=== PATIENT | female | born 2000 | race Caucasian/White ===

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

== ENCOUNTER 2020-11-25 21:41 | Emergency (ER) | payer OTHER ==
[2020-11-25 22:20] LABS: IMMATURE GRANULOCYTES 0.2 % (0.0-5.0); MEAN CELL VOLUME 82.5 fL CALC (80.0-100.0); MEAN CORPUSCULAR HGB 25.9 pG CALC (26.0-32.0); MEAN CORPUSCULAR HGB CONC 31.4 g/dL CAL (32.0-36.0); NEUT# 9.13 thou/uL (2.00-7.15); RED BLOOD COUNT 5.09 mill/uL (4.20-5.60); RED CELL DISTRI WIDTH 15.1 % (11.5-15.5)
[2020-11-25 22:22] LABS: URINE BILIRUBIN - DIPSTICK NEGATIVE (NEGATIVE); URINE BLOOD DIPSTICK MODERATE (NEGATIVE); URINE COLOR YELLOW; URINE GLUCOSE - DIPSTICK NEGATIVE (NEGATIVE); URINE KETONE 15 mg/dL (NEGATIVE); URINE LEUK ESTERASE NEGATIVE (NEGATIVE); URINE PH 5.5 (4.5-8.0); URINE PROTEIN - DIPSTICK NEGATIVE (NEG-TRACE); URINE SPECIFIC GRAVITY >=1.030; URINE UROBILINOGEN - DIPSTICK 0.2 E.U./dL (0.2)
[2020-11-25 22:25] LABS: URINE NITRITE - DIPSTICK NEGATIVE (Negative)
[2020-11-25 22:26] LABS: HEMOGLOBIN 13.2 g/dl (12.0-16.0)
[2020-11-25 22:31] LABS: URINE BACTERIA FEW hpf; URINE MUCUS FEW hpf (NONE-FEW); URINE SQUAMOUS EPITHELIAL CELL FEW EPI/hpf (0-FEW); URINE WBC 0-2 WBC/hpf (0-5)
[2020-11-25 22:38] LABS: ALBUMIN 4.2 g/dL (3.2-5.0); ALKALINE PHOSPHATASE 76 u/l (38-126); AMYLASE 33 u/l (30-110); ANION GAP 15 (6-22 (CALC)); BUN 19 mg/dL (7-17); BUN/CREATININE RATIO 28 (12-20 (CALC)); CARBON DIOXIDE 23 mmol/l (22-30); CHLORIDE 105 mmol/l (95-108); CREATININE 0.7 mg/dL (0.5-1.0); GFR > 60 ML/MIN (>=60 (CALC)); GFR FOR AFR.AMER. > 60 ML/MIN (>=60 (CALC)); LIPASE 48 u/l (23-300); POTASSIUM 4.2 mmol/l (3.5-5.1); SGOT/AST 20 u/l (14-36); SODIUM 139 mmol/l (137-146); TOTAL PROTEIN 7.2 g/dL (6.3-8.2)
[2020-11-25 22:39] LABS: BILIRUBIN, TOTAL 0.5 mg/dL (0.0-1.4)
[2020-11-26] MEDS ORDERED: ZOFRAN4 MG/TAB PO (00:10)
[2020-11-26 00:19] VITALS: BP 104/72
== END 2020-11-26 00:26 | disposition home or self-care (01) ==
LOC: ED 21:41
PROVIDERS: Family Medicine
DX: K52.9 Noninfective gastroenteritis and colitis, unspecified (principal); R10.12 Left upper quadrant pain; R10.13 Epigastric pain; Z20.822 Contact with and (suspected) exposure to COVID-19

== ENCOUNTER 2022-07-08 15:53 | Emergency (ER) | payer OTHER ==
[~2022-07-08] VITALS: Ht 160 cm; Wt 67.0 kg
[2022-07-08] VITALS (14 sets, daily range): BP systolic 87–132; BP diastolic 35–83
[~2022-07-08 15:53] MED LIST changes: +ZOFRAN4 MG/TAB PO
[2022-07-08 16:54] LABS: BASO% 0.4 % (0-3); EOS% 9.8 % (0-8); HEMATOCRIT 36.4 % (37.0-47.0); HEMOGLOBIN 11.3 g/dl (12.0-16.0); IMMATURE GRANULOCYTES 0.1 % (0.0-5.0); LYMPH% 27.4 % (15-41); MEAN CELL VOLUME 84.5 fL CALC (80.0-100.0); MEAN CORPUSCULAR HGB 26.2 pG CALC (26.0-32.0); MONO% 7.7 % (2-13); NEUT# 3.94 thou/uL (2.00-7.15); NEUT% 54.6 % (42-76); RED BLOOD COUNT 4.31 mill/uL (4.20-5.60); RED CELL DISTRI WIDTH 14.9 % (11.5-15.5)
[2022-07-08 16:55] LABS: URINE BILIRUBIN - DIPSTICK NEGATIVE (NEGATIVE); URINE BLOOD DIPSTICK MODERATE (NEGATIVE); URINE COLOR YELLOW; URINE GLUCOSE - DIPSTICK NEGATIVE (NEGATIVE); URINE KETONE NEGATIVE (NEGATIVE); URINE LEUK ESTERASE TRACE (NEGATIVE); URINE PROTEIN - DIPSTICK 100 mg/dL (NEG-TRACE); URINE SPECIFIC GRAVITY >=1.030; URINE UROBILINOGEN - DIPSTICK 0.2 E.U./dL (0.2)
[2022-07-08 16:59] LABS: URINE NITRITE - DIPSTICK NEGATIVE (Negative)
[2022-07-08 17:00] LABS: HCG SERUM/URINE (NEG/POS) NEGATIVE (NEGATIVE)
[2022-07-08 17:04] LABS: ALBUMIN 4.3 g/dL (3.2-5.0); ALKALINE PHOSPHATASE 56 u/l (38-126); ANION GAP 12 (6-22 (CALC)); BUN 12 mg/dL (7-17); BUN/CREATININE RATIO 16 (12-20 (CALC)); CARBON DIOXIDE 26 mmol/l (22-30); CHLORIDE 106 mmol/l (95-108); CREATININE 0.8 mg/dL (0.5-1.0); GFR FOR AFR.AMER. > 60 ML/MIN (>=60 (CALC)); GFR OTHER RACES > 60 ML/MIN (>=60 (CALC)); POTASSIUM 4.2 mmol/l (3.5-5.1); SGOT/AST 19 u/l (14-36); SODIUM 140 mmol/l (137-146); TOTAL PROTEIN 6.8 g/dL (6.3-8.2)
[2022-07-08 17:06] LABS: URINE SQUAMOUS EPITHELIAL CELL FEW EPI/hpf (0-FEW)
[2022-07-08 17:09] LABS: BILIRUBIN, TOTAL 0.2 mg/dL (0.02-1.3)
[2022-07-08] MEDS ORDERED: KEFLEX500 MG PO (19:12)
[2022-07-08] MEDS ORDERED: ZOFRAN4 MG/TAB PO (19:14)
== END 2022-07-08 19:27 | disposition home or self-care (01) ==
LOC: ED 15:53
PROVIDERS: Nurse Practitioner
DX: R55 Syncope and collapse (principal); N39.0 Urinary tract infection, site not specified; B96.4 Proteus (mirabilis) (morganii) as the cause of diseases classified elsewhere; Z20.822 Contact with and (suspected) exposure to COVID-19

== ENCOUNTER 2022-12-25 17:54 | Emergency (ER) | payer SELFPAY ==
[~2022-12-25] VITALS: Ht 160 cm; Wt 70.4 kg
[~2022-12-25 17:54] MED LIST changes: +KEFLEX500 MG PO
[2022-12-25 18:51] VITALS: BP 125/79
[2022-12-25 19:15] VITALS: BP 103/58
[2022-12-25 19:18] LABS: BASO% 0.3 % (0-3); EOS% 9.2 % (0-8); HEMATOCRIT 35.9 % (37.0-47.0); HEMOGLOBIN 11.4 g/dl (12.0-16.0); IMMATURE GRANULOCYTES 0.1 % (0.0-5.0); LYMPH% 27.4 % (15-41); MEAN CELL VOLUME 89.3 fL CALC (80.0-100.0); MEAN CORPUSCULAR HGB 28.4 pG CALC (26.0-32.0); MEAN CORPUSCULAR HGB CONC 31.8 g/dL CAL (32.0-36.0); MONO% 8.9 % (2-13); NEUT# 4.96 thou/uL (2.00-7.15); NEUT% 54.1 % (42-76); RED BLOOD COUNT 4.02 mill/uL (4.20-5.60); RED CELL DISTRI WIDTH 13.9 % (11.5-15.5)
[2022-12-25 19:32] LABS: ALBUMIN 3.8 g/dL (3.2-5.0); ALKALINE PHOSPHATASE 48 u/l (38-126); ANION GAP 11 (6-22 (CALC)); BILIRUBIN, TOTAL 0.2 mg/dL (0.02-1.3); BUN 12 mg/dL (7-17); BUN/CREATININE RATIO 15 (12-20 (CALC)); CARBON DIOXIDE 26 mmol/l (22-30); CHLORIDE 106 mmol/l (95-108); CREATININE 0.8 mg/dL (0.5-1.0); GFR FOR AFR.AMER. > 60 ML/MIN (>=60 (CALC)); GFR OTHER RACES > 60 ML/MIN (>=60 (CALC)); LIPASE 82 u/l (23-300); POTASSIUM 3.5 mmol/l (3.5-5.1); SGOT/AST 26 u/l (14-36); SODIUM 139 mmol/l (137-146); TOTAL PROTEIN 6.7 g/dL (6.3-8.2)
[2022-12-25 19:42] LABS: AMYLASE < 30 u/l (30-110)
[2022-12-25 19:54] LABS: URINE BILIRUBIN - DIPSTICK Negative (NEGATIVE); URINE BLOOD DIPSTICK Large (NEGATIVE); URINE GLUCOSE - DIPSTICK Negative (NEGATIVE); URINE KETONE Negative (NEGATIVE); URINE PH 5.5 (4.5-8.0); URINE PROTEIN - DIPSTICK 100 mg/dL (NEG-TRACE); URINE UROBILINOGEN - DIPSTICK 0.2 E.U./dL (0.2)
[2022-12-25 19:55] LABS: URINE COLOR Yellow; URINE LEUK ESTERASE Moderate (NEGATIVE); URINE NITRITE - DIPSTICK Positive (Negative)
[2022-12-25 20:09] LABS: URINE BACTERIA FEW hpf; URINE SQUAMOUS EPITHELIAL CELL FEW EPI/hpf (0-FEW); URINE WBC >100 WBC/hpf (0-5)
[2022-12-25] MEDS ORDERED: CEPHALEXIN500 MG PO (20:20)
[2022-12-25 20:54] VITALS: BP 103/58
== END 2022-12-25 21:08 | disposition home or self-care (01) | DRG 690 ==
LOC: ED 17:54
PROVIDERS: Emergency Medicine
DX: N39.0 Urinary tract infection, site not specified (principal); B96.20 Unspecified Escherichia coli [E. coli] as the cause of diseases classified elsewhere; R10.32 Left lower quadrant pain
CPT/HCPCS: Q9967

== ENCOUNTER 2023-12-17 05:46 | Emergency (ER) | payer SELFPAY ==
[~2023-12-17] VITALS: Ht 160 cm; Wt 68.0 kg
[2023-12-17] VITALS (11 sets, daily range): BP systolic 81–125; BP diastolic 52–74
[~2023-12-17 05:46] MED LIST changes: +CEPHALEXIN500 MG PO
[2023-12-17] MEDS ORDERED: SODIUM CHLORIDE 0.9% 1,000 ML IV ONE (06:20)
[2023-12-17] MEDS ORDERED: MORPHINE SULFATE 4 MG/ML VIAL IV ONE (06:20)
[2023-12-17] MEDS ORDERED: ONDANSETRON HCl 4 MG/2 ML SDV IV ONE (06:20)
[2023-12-17 06:26] LABS: BASO% 0.5 % (0-3); EOS% 5.7 % (0-8); HEMATOCRIT 37.4 % (37.0-47.0); IMMATURE GRANULOCYTES 0.2 % (0.0-5.0); LYMPH% 29.7 % (15-41); MEAN CELL VOLUME 91.7 fL CALC (80.0-100.0); MEAN CORPUSCULAR HGB 29.4 pG CALC (26.0-32.0); MEAN CORPUSCULAR HGB CONC 32.1 g/dL CAL (32.0-36.0); MONO% 8.3 % (2-13); NEUT# 3.69 thou/uL (2.00-7.15); NEUT% 55.6 % (42-76); RED BLOOD COUNT 4.08 mill/uL (4.20-5.60); RED CELL DISTRI WIDTH 12.1 % (11.5-15.5)
[2023-12-17 06:26] LABS: URINE BILIRUBIN - DIPSTICK Negative (NEGATIVE); URINE BLOOD DIPSTICK Large (NEGATIVE); URINE GLUCOSE - DIPSTICK Negative (NEGATIVE); URINE KETONE Negative (NEGATIVE); URINE LEUK ESTERASE Trace (NEGATIVE); URINE NITRITE - DIPSTICK Negative (Negative); URINE PROTEIN - DIPSTICK Negative (NEG-TRACE); URINE SPECIFIC GRAVITY 1.025; URINE UROBILINOGEN - DIPSTICK 0.2 E.U./dL (0.2)
[2023-12-17 06:27] LABS: URINE COLOR Yellow
[2023-12-17 06:35] LABS: URINE WBC 0-2 WBC/hpf (0-5)
[2023-12-17 06:36] LABS: URINE SQUAMOUS EPITHELIAL CELL FEW EPI/hpf (0-FEW)
[2023-12-17 06:46] LABS: ALBUMIN 3.9 g/dL (3.2-5.0); CREATININE 0.8 mg/dL (0.5-1.0); POTASSIUM 3.8 mmol/l (3.5-5.1); TOTAL PROTEIN 6.3 g/dL (6.3-8.2)
[2023-12-17 06:47] LABS: BILIRUBIN, TOTAL 0.5 mg/dL (0.02-1.3)
[2023-12-17] MEDS ORDERED: NAPROXEN500 MG PO (11:07)
[2023-12-17] MEDS ORDERED: CEPHALEXIN500 M1 PO (11:07)
== END 2023-12-17 11:24 | disposition home or self-care (01) | DRG 690 ==
LOC: ED 05:46
PROVIDERS: Family Medicine
DX: N39.0 Urinary tract infection, site not specified (principal)
CPT/HCPCS: Q9967

== ENCOUNTER 2024-03-11 19:26 | Emergency (ER) | payer SELFPAY ==
[~2024-03-11] VITALS: Ht 160 cm; Wt 61.2 kg
[~2024-03-11 19:26] MED LIST changes: +CEPHALEXIN500 M1 PO; +NAPROXEN500 MG PO
[2024-03-11 19:33] VITALS: BP 128/87
[2024-03-11] MEDS ORDERED: IBUPROFEN 600 MG/TAB PO ONE (19:45)
[2024-03-11] MEDS ORDERED: traMADol HCL 50 MG/TAB PO ONE (19:45)
[2024-03-11] MEDS ORDERED: TRAMADOL HYDROC50 M1 PO (22:07)
[2024-03-11] MEDS ORDERED: IBUPROFEN600 MG PO (22:07)
[2024-03-11 22:12] VITALS: BP 128/87
== END 2024-03-11 22:21 | disposition home or self-care (01) | DRG 605 ==
LOC: ED 19:26
DX: S60.211A Contusion of right wrist, initial encounter (principal); X58.XXXA Exposure to other specified factors, initial encounter

== ENCOUNTER 2024-04-23 15:10 | Emergency (ER) | payer SELFPAY ==
[2024-04-23] VITALS (10 sets, daily range): BP systolic 94–120; BP diastolic 58–94
[~2024-04-23] VITALS: Ht 160 cm; Wt 72.5 kg
[~2024-04-23 15:10] MED LIST changes: +IBUPROFEN600 MG PO; +TRAMADOL HYDROC50 M1 PO
[2024-04-23] MEDS ORDERED: ONDANSETRON HCl 4 MG/2 ML SDV IV ONE (17:45)
[2024-04-23] MEDS ORDERED: SODIUM CHLORIDE 0.9% 1,000 ML IV ONE ×2 (17:45→19:10)
[2024-04-23 17:51] LABS: BASO% 0.3 % (0-3); EOS% 7.1 % (0-8); HEMATOCRIT 34.4 % (37.0-47.0); HEMOGLOBIN 11.6 g/dl (12.0-16.0); IMMATURE GRANULOCYTES 0.2 % (0.0-5.0); LYMPH% 20.7 % (15-41); MEAN CELL VOLUME 90.8 fL CALC (80.0-100.0); MEAN CORPUSCULAR HGB 30.6 pG CALC (26.0-32.0); MEAN CORPUSCULAR HGB CONC 33.7 g/dL CAL (32.0-36.0); MONO% 6.3 % (2-13); NEUT# 7.72 thou/uL (2.00-7.15); NEUT% 65.4 % (42-76); RED BLOOD COUNT 3.79 mill/uL (4.20-5.60); RED CELL DISTRI WIDTH 11.7 % (11.5-15.5)
[2024-04-23 17:51] LABS: URINE BILIRUBIN - DIPSTICK Negative (NEGATIVE); URINE BLOOD DIPSTICK Moderate (NEGATIVE); URINE GLUCOSE - DIPSTICK Negative (NEGATIVE); URINE KETONE Negative (NEGATIVE); URINE NITRITE - DIPSTICK Negative (Negative); URINE PH 6.5 (4.5-8.0); URINE PROTEIN - DIPSTICK Negative (NEG-TRACE); URINE SPECIFIC GRAVITY 1.025; URINE UROBILINOGEN - DIPSTICK 0.2 E.U./dL (0.2)
[2024-04-23 17:52] LABS: URINE COLOR Yellow; URINE LEUK ESTERASE Small (NEGATIVE)
[2024-04-23 18:00] LABS: URINE BACTERIA FEW hpf; URINE SQUAMOUS EPITHELIAL CELL FEW EPI/hpf (0-FEW)
[2024-04-23 18:04] LABS: BILIRUBIN, TOTAL 0.4 mg/dL (0.02-1.3); CREATININE 0.6 mg/dL (0.5-1.0); TOTAL PROTEIN 6.4 g/dL (6.3-8.2)
[2024-04-23] MEDS ORDERED: MORPHINE SULFATE 4 MG/ML VIAL IV ONE (18:15)
[2024-04-23] MEDS ORDERED: MACROBID100 M1 PO (20:30)
== END 2024-04-23 20:47 | disposition home or self-care (01) | DRG 832 ==
LOC: ED 15:10
PROVIDERS: Emergency Medicine
DX: O99.350 Diseases of the nervous system complicating pregnancy, unspecified trimester (principal); G43.909 Migraine, unspecified, not intractable, without status migrainosus; O23.40 Unspecified infection of urinary tract in pregnancy, unspecified trimester; N39.0 Urinary tract infection, site not specified; Z3A.00 Weeks of gestation of pregnancy not specified
CPT/HCPCS: J0696; J1100; J2405

== ENCOUNTER 2024-05-26 16:42 | Emergency (ER) | payer SELFPAY ==
[2024-05-26] VITALS (22 sets, daily range): BP systolic 85–132; BP diastolic 46–83
[~2024-05-26] VITALS: Ht 160 cm; Wt 74.8 kg
[~2024-05-26 16:42] MED LIST changes: +MACROBID100 M1 PO
[2024-05-26 17:24] LABS: URINE BILIRUBIN - DIPSTICK Negative (NEGATIVE); URINE BLOOD DIPSTICK Moderate (NEGATIVE); URINE COLOR Yellow; URINE GLUCOSE - DIPSTICK Negative (NEGATIVE); URINE KETONE Negative (NEGATIVE); URINE LEUK ESTERASE Moderate (NEGATIVE); URINE NITRITE - DIPSTICK Negative (Negative); URINE PROTEIN - DIPSTICK Negative (NEG-TRACE); URINE UROBILINOGEN - DIPSTICK 0.2 E.U./dL (0.2)
[2024-05-26 17:24] LABS: BASO% 0.4 % (0-3); EOS% 5.8 % (0-8); HEMATOCRIT 33.2 % (37.0-47.0); IMMATURE GRANULOCYTES 0.1 % (0.0-5.0); LYMPH% 27.7 % (15-41); MEAN CELL VOLUME 91.5 fL CALC (80.0-100.0); MEAN CORPUSCULAR HGB 30.3 pG CALC (26.0-32.0); MEAN CORPUSCULAR HGB CONC 33.1 g/dL CAL (32.0-36.0); MONO% 6.4 % (2-13); NEUT# 4.95 thou/uL (2.00-7.15); NEUT% 59.6 % (42-76); RED BLOOD COUNT 3.63 mill/uL (4.20-5.60); RED CELL DISTRI WIDTH 12.3 % (11.5-15.5)
[2024-05-26 17:30] LABS: URINE BACTERIA MODERATE hpf; URINE SQUAMOUS EPITHELIAL CELL MANY EPI/hpf (0-FEW); URINE WBC 50-100 WBC/hpf (0-5)
[2024-05-26 17:54] LABS: ALBUMIN 3.7 g/dL (3.2-5.0); BILIRUBIN, TOTAL 0.3 mg/dL (0.02-1.3); CREATININE 0.5 mg/dL (0.5-1.0); POTASSIUM 3.9 mmol/l (3.5-5.1); TOTAL PROTEIN 6.4 g/dL (6.3-8.2)
[2024-05-26] MEDS ORDERED: CEPHALEXIN MONOHYDRATE 500 MG/CAP PO ONE (20:00)
[2024-05-27 02:49] VITALS: BP 94/51
== END 2024-05-27 02:35 | disposition short-term general hospital (02) | DRG 832 ==
LOC: ED 16:42
PROVIDERS: Nurse Practitioner
DX: O26.892 Other specified pregnancy related conditions, second trimester (principal); N39.0 Urinary tract infection, site not specified; R55 Syncope and collapse; O23.42 Unspecified infection of urinary tract in pregnancy, second trimester; O9A.212 Injury, poisoning and certain other consequences of external causes complicating pregnancy, second trimester; S09.90XA Unspecified injury of head, initial encounter; W19.XXXA Unspecified fall, initial encounter; Z3A.14 14 weeks gestation of pregnancy

== ENCOUNTER 2024-06-16 15:22 | Emergency (ER) | payer OTHER ==
[2024-06-16] VITALS (11 sets, daily range): BP systolic 86–113; BP diastolic 46–80
[~2024-06-16] VITALS: Ht 160 cm; Wt 73.0 kg
[2024-06-16 16:00] LABS: BASO% 0.2 % (0-3); EOS% 8.3 % (0-8); HEMATOCRIT 34.4 % (37.0-47.0); HEMOGLOBIN 11.2 g/dl (12.0-16.0); IMMATURE GRANULOCYTES 0.2 % (0.0-5.0); LYMPH% 23.3 % (15-41); MEAN CELL VOLUME 95.6 fL CALC (80.0-100.0); MEAN CORPUSCULAR HGB 31.1 pG CALC (26.0-32.0); MEAN CORPUSCULAR HGB CONC 32.6 g/dL CAL (32.0-36.0); MONO% 6.4 % (2-13); NEUT# 6.09 thou/uL (2.00-7.15); NEUT% 61.6 % (42-76); RED BLOOD COUNT 3.6 mill/uL (4.20-5.60); RED CELL DISTRI WIDTH 13.2 % (11.5-15.5)
[2024-06-16 16:00] LABS: URINE BILIRUBIN - DIPSTICK Negative (NEGATIVE); URINE BLOOD DIPSTICK Moderate (NEGATIVE); URINE GLUCOSE - DIPSTICK Negative (NEGATIVE); URINE KETONE Negative (NEGATIVE); URINE NITRITE - DIPSTICK Negative (Negative); URINE PROTEIN - DIPSTICK Negative (NEG-TRACE)
[2024-06-16 16:05] LABS: URINE COLOR Yellow; URINE LEUK ESTERASE Small (NEGATIVE)
[2024-06-16 16:08] LABS: URINE SQUAMOUS EPITHELIAL CELL FEW EPI/hpf (0-FEW)
[2024-06-16 16:09] LABS: URINE AMORPH SEDIMENT FEW hpf (NONE-FEW); URINE BACTERIA RARE hpf
[2024-06-16 16:13] LABS: ALBUMIN 3.9 g/dL (3.2-5.0); ALKALINE PHOSPHATASE 42 u/l (38-126); ANION GAP 9 (6-22 (CALC)); BILIRUBIN, TOTAL 0.3 mg/dL (0.02-1.3); BUN 8 mg/dL (7-17); BUN/CREATININE RATIO 14 (12-20 (CALC)); CARBON DIOXIDE 23 mmol/l (22-30); CHLORIDE 109 mmol/l (95-108); CREATININE 0.6 mg/dL (0.5-1.0); ESTIMATED GFR 128 ML/MIN (>=90 (CALC)); LIPASE 90 u/l (23-300); POTASSIUM 3.8 mmol/l (3.5-5.1); SGOT/AST 22 u/l (14-36); SODIUM 137 mmol/l (137-146); TOTAL PROTEIN 7.1 g/dL (6.3-8.2)
== END 2024-06-16 17:43 | disposition home or self-care (01) ==
LOC: ED 15:22
PROVIDERS: Nurse Practitioner
DX: O99.412 Diseases of the circulatory system complicating pregnancy, second trimester (principal); R00.2 Palpitations; O23.42 Unspecified infection of urinary tract in pregnancy, second trimester; N39.0 Urinary tract infection, site not specified; O99.342 Other mental disorders complicating pregnancy, second trimester; Z3A.17 17 weeks gestation of pregnancy; Z87.440 Personal history of urinary (tract) infections